=== PATIENT | female | born 1945 | race Caucasian/White ===

== ENCOUNTER 2018-05-10 15:54 | Emergency (ER) | payer MEDICARE ==
--- NOTE | 2018-05-10 17:07 | RAD ---
1 VIEW PELVIS: Date: 05/10/18 HISTORY: Fell 10 days ago. Pain. COMPARISON: None. FINDINGS: Sacral ala preserved. Intact bony pelvis. Surgical clips in left hemipelvis. There are vascular calci fications. Contour of both femoral heads are maintained. Symmetric hip joint spaces. No fracture. IMPRESSION: No post-traumatic change. POS: [facility]
--- NOTE | 2018-05-10 17:18 | RAD ---
RIGHT HIP TWO VIEWS: HISTORY: Pain. Fall. COMPARISON: None. FINDINGS: Contour of the femoral head is maintained. Mild loss of joint space height. No fracture. IMPRESSION: No fracture. POS: [facility]
== END 2018-05-10 18:14 | disposition home or self-care (01) ==
LOC: MADERS 15:54
DX: S76.911A Strain of unspecified muscles, fascia and tendons at thigh level, right thigh, initial encounter (principal); M10.9 Gout, unspecified; I25.10 Atherosclerotic heart disease of native coronary artery without angina pectoris; J44.9 Chronic obstructive pulmonary disease, unspecified; I11.0 Hypertensive heart disease with heart failure; I50.9 Heart failure, unspecified; K21.9 Gastro-esophageal reflux disease without esophagitis; F17.210 Nicotine dependence, cigarettes, uncomplicated; W06.XXXA Fall from bed, initial encounter
CPT/HCPCS: 72170

== ENCOUNTER 2018-09-24 10:04 | Emergency (ER) | payer MEDICARE ==
[~2018-09-24 10:04] MED LIST: Iopamidol 370 76% 125 ML VIAL FS ONE
[2018-09-24 10:36] LABS: #Basophils 0.1 thou/uL (0.0-0.2); #Eosinphils 0.1 thou/uL (0.0-0.7); #Lymphocytes 1.2 thou/uL (1.20-3.40); #Monocytes 0.7 thou/uL (0.11-0.59); #Neutrophils 8.5 thou/uL (1.40-6.50); %Basophils 0.9 % (0.0-1.0); %Eosinophils 1.2 % (0.0-10.0); %Monocytes 6.9 % (0.0-10.0); Hemoglobin 12.5 g/dL (12.0-16.0); Mean Corpuscular HGB CONC 32.3 g/dL (32.0-36.0); Mean Corpuscular Hemoglobin 29.6 pg (27.0-31.0); Mean Corpuscular Volume 91.6 fL (78.0-98.0); Mean Platelet Volume 9.6 fL (7.4-10.4); Platelet Count 256 thou/uL (130-400); RBC Distribution Width 17.3 % (11.5-14.5); Red Blood Cell (RBC) Count 4.23 mill/uL (4.20-5.40); White Blood Cell (WBC) Count 10.6 thou/uL (4.8-10.8)
[2018-09-24 10:39] LABS: Prothrombin Time 12.9 SEC (12.0-14.7)
[2018-09-24 10:51] LABS: ALT (SGPT) 13 U/L (8-55); AST (SGOT) 16 U/L (5-34); Albumin 3.8 g/dL (3.4-4.8); Alkaline Phosphatase 136 U/L (40-150); Anion Gap 12 mmol/L (10-20); BUN (Urea Nitrogen) 16 mg/dL (9.8-20.1); Bilirubin, Total 0.6 mg/dL (0.2-1.2); Calc. Creatinine Clearance 0 mL/min (70-130); Carbon Dioxide 27 mmol/L (23-31); Chloride 107 mmol/L (98-107); Estimated GFR-MDRD 54; Globulin 3.5 g/dL (2.4-3.5); Glucose 114 mg/dL (83-110); Potassium 4.5 mmol/L (3.5-5.1); Protein, Total 7.3 g/dL (6.0-8.3); Sodium 141 mmol/L (136-145)
[2018-09-24 11:04] LABS: Bilirubin Negative (Negative); Blood, Urine Negative (Negative); Clarity Hazy (Clear); Glucose, Urine (Dipstick) Negative (Negative); Leukocyte Moderate (Negative); Nitrite Negative (Negative); Protein, Urine (Dipstick) Negative (Neg-Trace); RBC/HPF 0-3 HPF (0-3); Squamous Epithelial 0-3 HPF (0-3); Urobilinogen 0.2 mg/dL (0.2-1.0)
[2018-09-24 11:05] LABS: Bacteria/HPF 3+ HPF (None Seen)
--- NOTE | 2018-09-24 11:05 | CT ---
CT CERVICAL SPINE PERFORMED WITHOUT CONTRAST ENHANCEMENT: HISTORY: Ground level fall with neck pain. FINDINGS: There is motion artifact, which degrades detail and causes some cortical irregularity at the C3 and C 4 levels; however, this is at the level of the most motion and is felt to be a reconstruction artifac t. The bones do appear demineralized. There is moderate disk narrowing at C4-C5, C5-C6, and C6-C7, and there are fairly pronounced degenerative facet changes noted. There is anterolisthesis of C4 on C5 with moderate left-sided foraminal narrowing. The canal shows some moderate stenosis at C5-C6 and mild bilateral foraminal narrowing. There is also mild to moderate canal stenosis at C6-C7, and mil d bilateral foraminal narrowing is also present at this level. I do not see any definite CT evidence for fracture. IMPRESSION: Motion artifact degrades detail of this examination. No evidence for fracture. POS: [facility]
--- NOTE | 2018-09-24 11:07 | CT ---
HEAD CT WITHOUT CONTRAST: HISTORY: The patient fell and was a trauma patient. The patient then started having stroke symptoms. The pat ient is on blood thinners. COMPARISON: None. FINDINGS: No parenchymal hemorrhage. No extraaxial hematoma. No midline shift. The basilar cisterns are hernandez nt. Age-appropriate atrophy. Cortical mcleod-white matter differentiation is preserved. No evidence of hydrocephalus. Indeterminate hypodensity involving the right aspect of the otto. Additional inde terminate hypodensities are noted in the left thalamus and right caudate nucleus. Calvarium is intact. Adequate aeration of the sinuses and mastoid air cells. IMPRESSION: No intracranial posttraumatic sequelae. No acute intracranial process. Results of the study were discussed with Dr. Addy Stanton 09/24/2018 at 10:48 a.m. THI AQUINO POS: [facility]
--- NOTE | 2018-09-24 12:30 | CT ---
CT ANGIOGRAM HEAD WITH IV CONTRAST AND 3D RECONSTRUCTIONS: CT ANGIGORAM NECK WITH IV CONTRAST AND 3D RECONSTRUCTIONS: 09/24/2018 HISTORY: The patient fell and started having stroke-like symptoms. The patient is on blood thinners. Hyperte nsion. COMPARISON: Noncontrast head CT obtained on 09/24/2018. FINDINGS: Dense atherosclerotic vascular calcifications are seen in the visualized thoracic aorta arch. There is normal arrangement of the great vessels at the aortic arch, which are patent. There is motion art ifact present on multiple images, which does limit evaluation for subtle abnormalities, but no defini tive focal stenosis is seen involving the bilateral common carotid arteries. There is motion also se en at the carotid artery bifurcation on the left. There is mild calcified atherosclerotic plaque in this region, but there does appear to be less than 50% maximal stenosis, according to NASCET criteria , and the internal carotid arteries are otherwise patent bilaterally. The bilateral subclavian arteries, as well as the innominate artery are patent. The bilateral vertebral arteries are patent. Again, there is motion artifact, which does limit evalu ation of portions of each vertebral artery. There is a questionable area of narrowing within the dis yandy right vertebral artery, at the level of the base of the C2 vertebral body, but this may represent a prominent kink as opposed to an area of atherosclerotic plaque and a flow-limiting stenosis. The bilateral middle cerebral and anterior cerebral arteries are patent. The A1 segment of the right middle cerebral artery is very small in caliber, which is a normal variant. The anterior communicat ing artery does appear patent. The bilateral middle cerebral and anterior cerebral arteries, as well as the posterior cerebral arteries, are patent. The most distal vertebral arteries, as well as the basilar artery, are patent. No aneurysm is seen, within the limitations of the technique of this exam. As noted on the pre-contrast images, there are moderate to severe chronic small vessel ischemic dominguez es. A lacunar infarction in the left thalamus, of indeterminate age, as well as a lacunar infarction in the body of the right caudate, are again seen, which are of indeterminate age. A low density foc us at the right aspect of the otto is not appreciated on this exam. Multilevel degenerative changes are seen in the cervical spine. There is volume loss in the visualized upper lung zones bilaterally. IMPRESSION: 1. Motion artifact, which limits evaluation, but no definite focal stenosis is seen involving the bi lateral internal carotid arteries. 2. Patent bilateral vertebral arteries with what is thought to be a prominent kink involving the dis yandy right vertebral artery. 3. No focal stenosis or branch occlusion is seen involving the morongo of [place] or the vertebrobasil ar system. 4. 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 5. Low density focus in the right otto seen on noncontrast CT scan is not appreciated on this examin ation. 6. Multilevel degenerative changes in the cervical spine. The above findings were discussed with Dr. Stanton in the emergency department on 09/24/2018 at 1214 [address]. CODE CR POS: [facility]
== END 2018-09-24 11:38 | disposition short-term general hospital (02) ==
LOC: MADERS 10:04
DX: S20.219A Contusion of unspecified front wall of thorax, initial encounter (principal); I63.9 Cerebral infarction, unspecified; M10.9 Gout, unspecified; I11.0 Hypertensive heart disease with heart failure; I50.9 Heart failure, unspecified; K21.9 Gastro-esophageal reflux disease without esophagitis; I25.10 Atherosclerotic heart disease of native coronary artery without angina pectoris; F17.210 Nicotine dependence, cigarettes, uncomplicated; W18.30XA Fall on same level, unspecified, initial encounter
CPT/HCPCS: 36416; 51702; 70450; 70496; 70498; 72125; 80053; 81003; 81015; 84484; 85025; 85610; 93005